=== PATIENT | female | born 2005 | race African-American/Black ===

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

== ENCOUNTER 2024-06-13 08:04 | Emergency (ER) | payer OTHER, SELFPAY | END 2024-06-13 08:35 | disposition home or self-care (01) | LOC: NAV ERS 08:04 | DX: S63.612A Unspecified sprain of right middle finger, initial encounter (principal); X58.XXXA Exposure to other specified factors, initial encounter; Y99.0 Civilian activity done for income or pay | CPT/HCPCS: 99283 ==

== ENCOUNTER 2024-08-08 16:08 | Emergency (ER) | payer SELFPAY ==
[2024-08-08] MEDS ORDERED: Boostrix 0.5 ML (Tdap) VIAL (>/=7 yrs of age) ONE (16:50)
== END 2024-08-08 17:55 | disposition home or self-care (01) ==
LOC: NAV ERS 16:08
DX: J06.9 Acute upper respiratory infection, unspecified (principal); J02.9 Acute pharyngitis, unspecified
CPT/HCPCS: 87081; 87428; 87430; 90715; 99283

== ENCOUNTER 2024-08-16 07:12 | Emergency (ER) | payer SELFPAY ==
[2024-08-16] MEDS ORDERED: Lorazepam 0.5 MG TAB ONE (08:09)
[2024-08-16] MEDS ORDERED: Ibuprofen 200 MG TAB ONE (09:38)
[2024-08-16 10:35] LABS: Troponin I Less than 0.010 ng/mL (< 0.028)
== END 2024-08-16 10:44 | disposition home or self-care (01) ==
LOC: NAV ERS 07:12
DX: R06.02 Shortness of breath (principal); R07.2 Precordial pain
CPT/HCPCS: 36415; 71045; 71046; 84484; 93005